=== PATIENT | male | born 1985 | race Caucasian/White ===

== ENCOUNTER 2025-03-29 04:56 | Emergency (ER) | payer SELFPAY ==
[2025-03-29 04:56] VITALS: BP 162/99; PULSE 111; RESP 18; TEMP 36.1; O2SAT 95
--- NOTE | 2025-03-29 04:58 | ED_ITS ---
HPI - Extremity Injury (Lower) General Chief Complaint: Extremity Problem,Nontraumatic Stated Complaint: gout flare in R ankle Time Seen by Provider: 03/29/25 04:58 Source: patient Mode of arrival: ambulatory Limitations: no limitations History of Present Illness HPI Narrative: Patient is a 39-year-old male with a right ankle pain medial more so of his typical gout flare. It is been a while since he has had a flare because he has been doing good about eating and drinking properly. It tonight he has pain on the right ankle medially which even the sheets touching the area cause pain. He varies between his right ankle and his right foot for gout. MD complaint: other (Right ankle pain without injury) Onset (ago): day(s) (3-4) Type of Injury: other (No injury) Place: home Severity: moderate Severity scale (1-10): 4 Relieving factors: nothing Exacerbating factors: nothing Context: other (No injury and pain medial aspect of the right ankle) Associated symptoms: swelling Other symptoms: none Treatments prior to arrival: other (None) Related Data Allergies Allergy/AdvReac Type Severity Reaction Status Date / Time diphtheria,pertussis Allergy Severe Anaphylactic Verified 03/29/25 05:00 (acellular),te (From reaction Adacel(Tdap to DTAP Adolesn/Adult)(PF)) PERTUSSIS/ NO LATEX ALLERGY Allergy Severe Anaphylactic Uncoded 03/29/25 05:00 Shock Review of Systems Constitutional: Constitutional: Reports no additional constitutional complaints Eyes: Eyes: Reports no additional eye complaints ENT: Reports system reviewed and no additional complaints, except as documented Cardiovascular: Cardiovascular: Reports no additional cardiovascular complaints Respiratory: Respiratory: Reports no additional respiratory complaints Gastrointestinal: Gastrointestinal: Reports no additional gastrointestinal complaints Genitourinary: Genitourinary: Reports no additional male genitourinary complaints Musculoskeletal: Musculoskeletal: Reports no additional musculoskeletal complaints Integumentary/Breasts: Skin/Breast: Reports system reviewed and no additional complaints, except as docu Neurologic: Reports system reviewed and no additional complaints, except as documented Psychiatric: Psychiatric: Reports no additional psychiatric complaints Endocrine: Endocrine: Reports no additional endocrine complaints Hematologic/Lymphatic: Hematologic/Lymphatic: Reports no additional hematologic/lymphatic complaints Allergic/Immunologic: Allergic/Immunologic: Reports no additional allergic/i mmunologic complaints [facility] Past Medical History Medical History Gout Surgical History Surgical History H/O foot surgery H/O right wrist surgery Social History Social History Smoking status: Never smoker Alcohol intake: never Substance use: never Living arrangements: with family Occupation/Education: unemployed Exam Const: General: healthy appearing and no acute distress Orientation/consciousness: patient oriented x3 Limitations: no limitations HENMT: Head: normal to inspection Ears: external ears normal Face/Nose/Sinus: Normal external nose present Eyes: Conjunctivae: conjunctivae normal Pupils: Equal, round and reactive pupils present EOM: EOMs intact bilaterally Neck: Neck: normal visual inspection, no lymphadenopathy and no meningeal signs Chest: Chest palpation & inspection: normal inspection of the chest Resp: Effort & Inspection: normal respiratory effort, not labored, no retractions, not tachypneic and no use of accessory muscles Auscultation: clear to auscultation bilaterally, no crackles, no rales and no rhonchi Cardio: Rate: regular rate Rhythm: regular rhythm Heart sounds: no murmurs GI: Inspection: non-distended GI Palp: Yes Soft to palpation and No Tenderness to palpation present (GI) Auscultation: normal bowel sounds : General: Yes bladder normal to palpation Skin: General skin exam: normal color, jaundice and pallor Rashes: no rashes Wounds: no wounds Neuro: General: patient oriented x3, moves all extremities, no meningeal signs, no focal motor deficits and CN's II-XI intact bilaterally Cranial nerves: Yes Nystagmus not present Speech: normal speech Gait exam (Neuro): Normal gait present Other: Fast exam negative, NIH is 0, GCS is 15 Extrem: General: normal to inspection and no clubbing, cyanosis or edema Psych: Mental Status: mental status grossly normal Affect: normal affect Attitude: cooperative Course Vital Signs Vital signs: Vital Signs Temperature 36.1 C L 03/29/25 04:56 Pulse Rate 111 H 03/29/25 04:56 Respiratory Rate 18 03/29/25 04:56 Blood Pressure 162/99 H 03/29/25 04:56 Pulse Oximetry 95 03/29/25 04:56 Oxygen Delivery Room Air 03/29/25 04:56 Temperature 36.1 C L 03/29/25 04:56 Pulse Rate 111 H 03/29/25 04:56 Respiratory Rate 18 03/29/25 04:56 Blood Pressure 162/99 H 03/29/25 04:56 Pulse Oximetry 95 03/29/25 04:56 Oxygen Delivery Room Air 03/29/25 04:56 MDM - Extremity Injury (Lower) MDM Narrative Medical decision making narrative: Patient is a 39-year-old male with known and recurrent right ankle gout and presents with a flare on his right ankle. Prednisone. Toradol. [place]. Discharge meds are prednisone, Indocin and [place]. No concerns for abuse or Discharge Plan Discharge Clinical Impression: Acute gout of right ankle Patient Disposition: Home Condition: Stable Instructions: Low Purine Diet (ED), Gout (ED) Patient Language: Tristanian Prescriptions: New indomethacin 25 mg capsule 25 mg PO TID PRN (Reason: pain) Qty: 20 0RF Rx Instructions: 1-2 tabs per dose hydrocodone-acetaminophen 5-325 mg tablet 1 tablet PO Q8H PRN (Reason: pain) Qty: 20 0RF Rx Instructions: 1-2 tabs per dose prednisone 20 mg tablet 40 mg PO DAILY 3 Days Qty: 6 0RF No Action tizanidine [Zanaflex] 4 mg tablet 4 mg PO Q8H PRN (Reason: muscle spasticity) Qty: 20 0RF Follow-up/Referrals: UNKNOWN,DOCTOR [Primary Care Provider] Stand Alone Forms: Work/School Release IP Time of Disposition: 05:16
[2025-03-29] MEDS: HYDROcodone/acetaminophen (*CRX) 10-325 MG TABLET 1 TAB PO (05:17)
[2025-03-29] MEDS: KETOROLAC (*BKC) 60 MG/2 ML VIAL IM (05:19)
[2025-03-29 05:39] VITALS: BP 159/89; PULSE 98; RESP 18; O2SAT 97
== END 2025-03-29 05:39 | disposition home or self-care (01) ==
LOC: CHSED 05:21
PROVIDERS: Emergency Provider Emergency Medicine
DX: M10.9 Gout, unspecified (principal)
CPT/HCPCS: 96372; 99283; A9270; J1885; J7512